=== PATIENT | female | born 1980 | race Hispanic/Latino ===

== ENCOUNTER 2020-01-24 14:24 | Inpatient (IN) | payer BC, MEDICAID ==
[~2020-01-24] VITALS: Ht 154.9 cm; Wt 74.2 kg
[2020-01-24 14:43] LABS: BASOPHILS % (AUTO) 0.3 % (0.0-5.0); EOSINOPHILS % (AUTO) 0.8 % (0.0-8.0); HEMATOCRIT 40.5 % (36-48); LYMPHOCYTES % (AUTO) 18.9 % (21.0-51.0); MEAN CORPUSCULAR HEMOGLOBIN 31.6 pg (27.0-33.0); MEAN CORPUSCULAR HGB CONC 35.6 g/dL (32.0-36.0); MONOCYTES % (AUTO) 4.5 % (3.0-13.0); NEUTROPHILS % (AUTO) 74.9 % (40.0-77.0); PLATELET COUNT (AUTO) 178 K/uL (130-400); RED BLOOD CELL COUNT(AUTO) 4.55 MIL/uL (4.00-5.50); RED CELL DISTRIBUTION WIDTH 11.9 % (11.0-15.5); WHITE BLOOD COUNT (AUTO) 10.6 K/uL (4.8-10.8)
[2020-01-24 14:56] LABS: CARBON DIOXIDE 26 mmol/L (21-32); CHLORIDE 98 mmol/L (101-111); CREATININE 0.8 mg/dL (0.5-1.5); GLOMERULAR FILTR. RATE CALC 84 mL/min (>60); GLUCOSE,RANDOM 302 mg/dL (70-105); POTASSIUM 3.7 mmol/L (3.5-5.1); SODIUM SERUM 132 mmol/L (136-145); UREA NITROGEN, BLOOD 11 mg/dL (7-18)
[2020-01-24 14:57] LABS: INR 0.87 (0.85-1.15); PARTIAL THROMBOPLASTIN TIME 24.1 SEC (26.3-35.5); PROTHROMBIN TIME 9.4 SEC (9.6-11.6)
[2020-01-24 15:01] LABS: LIPASE 77 U/L (114-286)
[2020-01-24 15:06] LABS: ALANINE AMINOTRANSFERASE 45 U/L (12-78); ALBUMIN 3.6 g/dL (3.5-5.0); ASPARTATE AMINOTRANSFERASE 19 U/L (10-37); BILIRUBIN,TOTAL 0.5 mg/dL (0.2-1.0); CREATINE KINASE, TOTAL 52 U/L (21-232); MYOGLOBIN 20 ng/mL (10-92); TOTAL PROTEIN, SERUM 7.4 g/dL (6.0-8.3); TROPONIN I < 0.04 ng/mL (0.00-0.06)
[2020-01-24] MEDS ORDERED: ONDANSETRON HCL 4 MG/2 ML VIAL ONE ×2 (15:10→18:29)
[2020-01-24] MEDS ORDERED: ACETAMINOPHEN EXTRA STRENGTH 500 MG TABLET ONE (15:10)
[2020-01-24] MEDS ORDERED: MORPHINE SULFATE 4 MG/1ML SYG ONE (15:10)
[2020-01-24] MEDS ORDERED: ONDANSETRON HCL 4 MG/2 ML VIAL IV PRN (17:15)
[2020-01-24] MEDS ORDERED: LACTULOSE 20 GM/30 ML UDCUP PO PRN (17:15)
[2020-01-24] MEDS ORDERED: POTASSIUM CHLORIDE 20MEQ/100ML 100 ML IV PRN ×2 (17:15)
[2020-01-24] MEDS ORDERED: GUAIFENESIN-DM 200/20 MG 10 ML PO PRN (17:15)
[2020-01-24] MEDS ORDERED: DIPHENHYDRAMINE HCL 25 MG CAPSULE PO PRN (17:15)
[2020-01-24] MEDS ORDERED: NITROGLYCERIN 0.4 MG SL TAB SL PRN (17:15)
[2020-01-24] MEDS ORDERED: POTASSIUM CHLORIDE 20 MEQ ERTAB PO PRN (17:15)
[2020-01-24] MEDS ORDERED: HYDRALAZINE HCL 20 MG/ML VIAL IV PRN (17:15)
[2020-01-24] MEDS ORDERED: ACETAMINOPHEN 325 MG TAB PO PRN ×2 (17:15)
[2020-01-24] MEDS ORDERED: DiphenhydrAMINE HCL 50 MG/ML VIAL IV PRN (17:15)
[2020-01-24] MEDS ORDERED: MAG HYDROX/AL HYDROX/SIMETH ES 30 ML SUSP UDCUP PO PRN (17:15)
[2020-01-24] MEDS ORDERED: POTASSIUM CHLORIDE 10% ELIXIR 20 MEQ/15 ML UDCUP PO PRN (17:15)
[2020-01-24 17:36] LABS: CHOLESTEROL 167 mg/dL (<200); HDL CHOLESTEROL 129 mg/dL (35-85); LDL DIRECT 82 mg/dL (0-99); TRIGLYCERIDES 550 mg/dL (30-200)
[2020-01-24] MEDS ORDERED: ZOSYN 3.375GM+NS 50ML 50 ML IV ONE (17:51)
[2020-01-24] MEDS ORDERED: MORPHINE SULFATE 2 MG/ML 1ML SYG ONE (18:17)
[2020-01-24] MEDS ORDERED: GLUCAGON 1MG KIT 1 MG ML IM PRN (19:00)
[2020-01-24] MEDS ORDERED: DEXTROSE 50%-WATER 50 ML DISP.SYRIN IV PRN (19:00)
[2020-01-24] MEDS ORDERED: INSULIN HUMULIN R 100 UNIT/ML 3ML ONE (20:45)
[2020-01-24] MEDS: INSULIN HUMULIN R 100 UNIT/ML 3ML SQ SCH (21:00)
[2020-01-24] MEDS: FAMOTIDINE/PF 20 MG/2 ML VIAL IV SCH (21:00)
[2020-01-24] MEDS: ZOSYN 3.375GM+NS 50ML 50 ML IV SCH (21:00)
[2020-01-24] MEDS ORDERED: ACETAMINOPHEN 325 MG TAB ONE (21:20)
[2020-01-24] MEDS ORDERED: FAMOTIDINE/PF 20 MG/2 ML VIAL IV ONE (21:21)
[2020-01-24] MEDS ORDERED: SODIUM CHLORIDE 0.9% 250 ML IV ONE (22:09)
[2020-01-24 22:15] VITALS: BP 126/94
[2020-01-24] MEDS: MORPHINE SULFATE 2 MG/ML 1ML SYG IVP PRN (22:31)
[2020-01-24] MEDS: LACTATED RINGERS 1000ML 1,000 ML IV SCH ×2 (22:32→23:44)
[2020-01-24] MEDS: INSULIN GLARGINE 100 UNITS/ML 10 ML VIAL SQ SCH (23:04)
[2020-01-25] VITALS (25 sets, daily range): BP systolic 105–128; BP diastolic 59–83
[2020-01-25] MEDS: MORPHINE SULFATE 2 MG/ML 1ML SYG IVP PRN ×2 (02:31→06:14)
[2020-01-25 05:24] LABS: BASOPHILS % (AUTO) 0.3 % (0.0-5.0); EOSINOPHILS % (AUTO) 0.9 % (0.0-8.0); HEMATOCRIT 37.3 % (36-48); LYMPHOCYTES % (AUTO) 18.1 % (21.0-51.0); MEAN CORPUSCULAR HEMOGLOBIN 31.6 pg (27.0-33.0); MEAN CORPUSCULAR HGB CONC 35.4 g/dL (32.0-36.0); MEAN CORPUSCULAR VOLUME 89.2 fL (79-99); MONOCYTES % (AUTO) 4.4 % (3.0-13.0); NEUTROPHILS % (AUTO) 75.8 % (40.0-77.0); PLATELET COUNT (AUTO) 163 K/uL (130-400); RED BLOOD CELL COUNT(AUTO) 4.18 MIL/uL (4.00-5.50); WHITE BLOOD COUNT (AUTO) 10.6 K/uL (4.8-10.8)
[2020-01-25 05:29] LABS: HEMOGLOBIN A1C 9.6 % (4.0-6.0)
[2020-01-25 05:32] LABS: CREATININE 0.4 mg/dL (0.5-1.5); POTASSIUM 3.7 mmol/L (3.5-5.1)
[2020-01-25 05:57] LABS: INR 0.91 (0.85-1.15); PARTIAL THROMBOPLASTIN TIME 26.6 SEC (26.3-35.5); PROTHROMBIN TIME 9.9 SEC (9.6-11.6)
[2020-01-25] MEDS: ZOSYN 3.375GM+NS 50ML 50 ML IV SCH ×3 (06:11→20:10)
[2020-01-25] MEDS: LACTATED RINGERS 1000ML 1,000 ML IV SCH ×4 (06:11→20:31)
[2020-01-25] MEDS: INSULIN HUMULIN R 100 UNIT/ML 3ML SQ SCH ×7 (06:12→20:29)
[2020-01-25] MEDS: FAMOTIDINE/PF 20 MG/2 ML VIAL IV SCH ×2 (08:28→20:10)
[2020-01-25] MEDS ORDERED: SODIUM CHLORIDE 0.9% 1000ML 1,000 ML IV ONE (08:41)
[2020-01-25] MEDS ORDERED: MIDAZOLAM HCL 1 MG/ML 2ML VIAL ONE (09:08)
[2020-01-25] MEDS ORDERED: LIDOCAINE PF 2% 5ML ABBOJECT ONE (09:08)
[2020-01-25] MEDS ORDERED: ROCURONIUM 10MG/1ML SYR 10 MG/ML ML ONE (09:09)
[2020-01-25] MEDS ORDERED: PROPOFOL 10 MG/ML 20ML VIAL IV ONE (09:09)
[2020-01-25] MEDS ORDERED: FENTANYL CITRATE PF 50 MCG/1 ML 2ML VIAL ONE (09:09)
[2020-01-25] MEDS ORDERED: ONDANSETRON HCL 4 MG/2 ML VIAL ONE (09:09)
[2020-01-25] MEDS ORDERED: BUPIVACAINE/PF 0.5% 30ML VIAL ONE (09:18)
[2020-01-25] MEDS ORDERED: DEXAMETHASONE SOD PHOSPHATE 10MG/ML 1ML VIAL ONE (09:47)
[2020-01-25] MEDS ORDERED: NEOSTIGMINE 5MG/5ML SYR IV ONE (10:01)
[2020-01-25] MEDS ORDERED: GLYCOPYRROLATE 1 MG/5 ML SYRINGE ONE (10:01)
[2020-01-25] MEDS ORDERED: KETOROLAC TROMETHAMINE 30MG/ML ONE (10:12)
[2020-01-25] MEDS ORDERED: MEPERIDINE-PF 25 MG/ML SYG ONE (10:51)
[2020-01-25] MEDS: MORPHINE SULFATE 4 MG/1ML SYG IM PRN ×2 (12:20→20:25)
[2020-01-25] MEDS: ACETAMINOPHEN-CODEINE 300/30MG TAB PO PRN (16:26)
--- NOTE | 2020-01-25 16:54 | NUR ---
INITIAL SW spoke to patient's mother, Lexie Tineo. Patient lives with adult children. She has no home services or DME. 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 She has no PCP. Pharmacy is [facility] located on [address] [place] [address] in [place]. DCP is home. Addendum: 01/25/20 at 1656 by CYN CALLEJAS SS Amended: Links added.
--- NOTE | 2020-01-25 16:56 | NUR ---
ALTERNATE EMERGENCY CONTACT Elsy Tineo - sister - [phone]
--- NOTE | 2020-01-25 20:10 | NUR ---
MEDS SHIFT ASSESSMENT DONE, PLEASE REFER TO CHART. PT CLAIMS OF POST OP PAINS. DUE MEDS ADMINISTERED, MORPHINE IV GIVEN FOR PAINS. PT TOLERATED MEDS WELL. KEPT RESTED AND COMFORTABLE IN BED. CALL LIGHT WITHIN REACH. WILL RE-ASSESS PT. Addendum: 01/25/20 at 2207 by MARCO DUNHAM RN RN Amended: Links added.
[2020-01-25] MEDS: INSULIN GLARGINE 100 UNITS/ML 10 ML VIAL SQ SCH (20:31)
[2020-01-26] MEDS ORDERED: MORPHINE SULFATE 4 MG/1ML SYG IV PRN
[2020-01-26 00:20] VITALS: BP 100/52
--- NOTE | 2020-01-26 01:20 | NUR ---
ROUNDS PT IS AWAKE AND SITTING ON THE SIDE OF HER BED. VERBALIZES OF INABILITY TO GO BACK TO SLEEP. NO OTHER CONCERNS VERBALIZED. KEPT COMFORTABLE. WILL MONITOR PT.
[2020-01-26] MEDS: ACETAMINOPHEN-CODEINE 300/30MG TAB PO PRN ×2 (02:30→09:16)
--- NOTE | 2020-01-26 02:30 | NUR ---
PAIN PT COMPLAINT SOF POST OP PAINS. MEDICATED WITH TYLENOL #3. PT VERBALIZES OF PASSING GAS ALREADY. KEPT COMFORTABLE IN BED. WILL RE-ASSESS PT.
[2020-01-26 04:13] VITALS: BP 107/66
[2020-01-26] MEDS: ZOSYN 3.375GM+NS 50ML 50 ML IV SCH ×2 (04:26→13:55)
--- NOTE | 2020-01-26 04:26 | NUR ---
MEDS PT STILL FAIRLY ASLEEP. NO DISTRESS NOTED. DUE IV DAISY BUSTAMANTE. KEPT UNDISTURBED. FOR MORE CARE.
[2020-01-26 05:00] LABS: BASOPHILS % (AUTO) 0.1 % (0.0-5.0); EOSINOPHILS % (AUTO) 0.6 % (0.0-8.0); HEMATOCRIT 33.8 % (36-48); LYMPHOCYTES % (AUTO) 28.9 % (21.0-51.0); MEAN CORPUSCULAR HEMOGLOBIN 31.5 pg (27.0-33.0); MEAN CORPUSCULAR HGB CONC 34.6 g/dL (32.0-36.0); MEAN CORPUSCULAR VOLUME 91.1 fL (79-99); NEUTROPHILS % (AUTO) 63.9 % (40.0-77.0); PLATELET COUNT (AUTO) 150 K/uL (130-400); RED BLOOD CELL COUNT(AUTO) 3.71 MIL/uL (4.00-5.50); RED CELL DISTRIBUTION WIDTH 12.4 % (11.0-15.5)
[2020-01-26 05:08] LABS: CREATININE 0.5 mg/dL (0.5-1.5); POTASSIUM 3.7 mmol/L (3.5-5.1)
[2020-01-26] MEDS: INSULIN HUMULIN R 100 UNIT/ML 3ML SQ SCH ×4 (06:15→11:25)
[2020-01-26 08:00] VITALS: BP 111/66
[2020-01-26] MEDS: FAMOTIDINE/PF 20 MG/2 ML VIAL IV SCH (09:16)
[2020-01-26] MEDS: LACTATED RINGERS 1000ML 1,000 ML IV SCH (09:16)
[2020-01-26] MEDS ORDERED: METF-444 PO (10:33)
[2020-01-26 11:20] VITALS: BP 120/70
--- NOTE | 2020-01-26 17:21 | NUR ---
Discharge instructions, diabetic education and prescribed medications reviewed with patient. Reviewed importance of diabetic management by diet, exercise and medications. Provide patient with follow up information and provided physician's phone numbers so she may call to make appointments as recommended. Per patient, she will be able to make appointments. Provided Ruslan Lucia's information to follow up with for diabetic management. Patient verbalized understanding. Prescriptions for metformin and Tylenol #3 given to patient. PIV to LAC removed, bleeding controlled, dressing applied. Patient assisted downstairs via wheelchair where spouse picked up to take home.
== END 2020-01-26 17:35 | disposition home or self-care (01) | DRG 343 ==
LOC: EDH 14:24 → EDHIP 17:32 → 3CH 21:39
PROVIDERS: ADMIT Family Medicine; ATTEND Family Medicine
PROC: 0DTJ4ZZ Resection of Appendix, Percutaneous Endoscopic Approach (ICD-10-PCS; principal; 2020-01-25 09:00)
DX: K35.891 Other acute appendicitis without perforation, with gangrene (principal); E11.9 Type 2 diabetes mellitus without complications; E66.9 Obesity, unspecified; K66.0 Peritoneal adhesions (postprocedural) (postinfection); Z86.32 Personal history of gestational diabetes; Z68.30 Body mass index [BMI] 30.0-30.9, adult
CPT/HCPCS: 36415; 71045; 74176; 80048; 80053; 80061; 82550; 82948; 83036; 83605; 83690; 83874; 84145; 84484; 85025; 85610; 85730; 86900; 86901; 87040; 93005; G0378; J1100; J1200; J1815; J1885; J2001; J2175; J2250; J2270; J2405; J2543; J2704; J2710; J3010; J3490; J7030; J7050; J7120

== ENCOUNTER 2022-01-24 18:45 | Emergency (ER) | payer BC, OTHER ==
[~2022-01-24] VITALS: Ht 154.9 cm; Wt 75.7 kg
[~2022-01-24 18:45] MED LIST: METF-444 PO
[2022-01-24 19:25] LABS: BASOPHILS % (AUTO) 0.4 % (0.0-5.0); EOSINOPHILS % (AUTO) 2.5 % (0.0-8.0); HEMATOCRIT 39.4 % (36-48); LYMPHOCYTES % (AUTO) 41.4 % (21.0-51.0); MEAN CORPUSCULAR HEMOGLOBIN 30.5 pg (27.0-33.0); MEAN CORPUSCULAR VOLUME 87.2 fL (79-99); MONOCYTES % (AUTO) 6.3 % (3.0-13.0); NEUTROPHILS % (AUTO) 48.9 % (40.0-77.0); PLATELET COUNT (AUTO) 233 K/uL (130-400); RED BLOOD CELL COUNT(AUTO) 4.52 MIL/uL (4.00-5.50); RED CELL DISTRIBUTION WIDTH 12.5 % (11.0-15.5); WHITE BLOOD COUNT (AUTO) 7.9 K/uL (4.8-10.8)
[2022-01-24] MEDS ORDERED: LORAZEPAM 2 MG/ML 1 ML VIAL IM ONE (19:30)
[2022-01-24 19:41] VITALS: BP 124/76
[2022-01-24 19:44] LABS: CREATININE 0.6 mg/dL (0.5-1.5); POTASSIUM 4.3 mmol/L (3.5-5.1)
[2022-01-24 19:51] LABS: APPEARANCE,URINE Clear (CLEAR); BILIRUBIN,URINE Negative (NEGATIVE); COLOR,URINE Yellow (YELLOW); GLUCOSE, URINE (UA) >=1000 mg/dL (NEGATIVE); KETONES,URINE Trace mg/dL (NEGATIVE); LEUKOCYTE ESTERASE ,URINE Negative (NEGATIVE); NITRATE,URINE Negative (NEGATIVE); OCCULT BLOOD,URINE Negative (NEGATIVE); PROTEIN,URINE Negative (NEGATIVE); UROBILINOGEN,URINE 0.2 mg/dL (0.2-1.0)
[2022-01-24 19:53] LABS: ALBUMIN 3.9 g/dL (3.5-5.0); TOTAL PROTEIN, SERUM 7.8 g/dL (6.0-8.3)
[2022-01-24 19:57] LABS: AMPHET/METH SCREEN,URINE NEGATIVE (NEGATIVE); BARBITURATE SCREEN, URINE NEGATIVE (NEGATIVE); BENZODIAZEPINES SCREEN,URINE NEGATIVE (NEGATIVE); CANNABINOID SCREEN,URINE NEGATIVE (NEGATIVE); COCAINE SCREEN,URINE NEGATIVE (NEGATIVE); OPIATE SCREEN,URINE NEGATIVE (NEGATIVE); PHENCYCLIDINE SCREEN,URINE NEGATIVE (NEGATIVE)
[2022-01-24 19:59] LABS: BACTERIA,URINE Rare /HPF (None Seen); RBC,URINE 0-1 /HPF (0-1); SQUAMOUS EPITHELIAL CELL,UR Rare /HPF (0-2); WBC,URINE 0-1 /HPF (0-1)
[2022-01-24] MEDS ORDERED: HYDR-3421 PO (20:13)
== END 2022-01-24 20:32 | disposition home or self-care (01) ==
LOC: EDH 18:45
DX: F41.9 Anxiety disorder, unspecified (principal); R07.89 Other chest pain; Z20.822 Contact with and (suspected) exposure to COVID-19; E11.9 Type 2 diabetes mellitus without complications; E78.00 Pure hypercholesterolemia, unspecified; I10 Essential (primary) hypertension; Z79.84 Long term (current) use of oral hypoglycemic drugs; Z90.49 Acquired absence of other specified parts of digestive tract
CPT/HCPCS: 99285; 71045; 87635; 84484; 80053; 80305; 85025; 36415; 96372; 93005; 81001; C9803; J2060

== ENCOUNTER → 2023-03-20 | Outpatient (CLI) | payer MEDICAID ==
[~2023-03-20] MED LIST changes: +HYDR-3421 PO
[2023-03-20 12:11] LABS: CHOLESTEROL 195 mg/dL (<200); HDL CHOLESTEROL 54 mg/dL (35-85); LDL DIRECT 117 mg/dL (0-99); TRIGLYCERIDES 96 mg/dL (30-200)
[2023-03-20 13:21] LABS: HEMOGLOBIN A1C 11.3 % (4.0-6.0)
== END | disposition home or self-care (01) ==
LOC: LAB 09:17
PROVIDERS: ATTEND Student in an Organized Health Care Education/Training Program
DX: E78.5 Hyperlipidemia, unspecified (principal); R55 Syncope and collapse
CPT/HCPCS: 36415; 80061; 83036

== ENCOUNTER → 2023-03-21 | Outpatient (CLI) | payer MEDICAID | END | disposition home or self-care (01) | LOC: SHCH 10:30 | PROVIDERS: ATTEND Student in an Organized Health Care Education/Training Program | DX: R07.9 Chest pain, unspecified (principal); I10 Essential (primary) hypertension; E11.9 Type 2 diabetes mellitus without complications; E78.5 Hyperlipidemia, unspecified | CPT/HCPCS: 93306 ==

== ENCOUNTER → 2023-03-28 | Outpatient (CLI) | payer MEDICAID | END | disposition home or self-care (01) | LOC: SHCH 12:38 | PROVIDERS: ATTEND Student in an Organized Health Care Education/Training Program | DX: I73.9 Peripheral vascular disease, unspecified (principal) | CPT/HCPCS: 93925 ==

== ENCOUNTER → 2023-04-10 | Outpatient (CLI) | payer MEDICAID ==
[~2023-04-10] MED LIST changes: +IOHEXOL 350 MG/ML 100ML INFUS..BTL IV ONE; +METOPROLOL TARTRATE 1 MG/ML 5ML VIAL IV ONE
== END | disposition home or self-care (01) ==
LOC: CANPRECLI → RAH 08:45
PROVIDERS: ATTEND Student in an Organized Health Care Education/Training Program
DX: R07.9 Chest pain, unspecified (principal); M47.815 Spondylosis without myelopathy or radiculopathy, thoracolumbar region
CPT/HCPCS: 75574; J3490; Q9967

== ENCOUNTER → 2023-12-04 | Outpatient (CLI) | payer MEDICAID ==
[~2023-12-04] MED LIST changes: -IOHEXOL 350 MG/ML 100ML INFUS..BTL IV ONE; -METOPROLOL TARTRATE 1 MG/ML 5ML VIAL IV ONE
[2023-12-04 12:39] LABS: CREATININE 0.6 mg/dL (0.5-1.0)
== END | disposition home or self-care (01) ==
LOC: LAB 09:37
PROVIDERS: ATTEND Student in an Organized Health Care Education/Training Program
DX: R55 Syncope and collapse (principal); E11.9 Type 2 diabetes mellitus without complications; E78.5 Hyperlipidemia, unspecified; R07.89 Other chest pain
CPT/HCPCS: 36415; 80048; 85651; 86141